=== PATIENT | male | born 2000 | race Caucasian/White ===

== ENCOUNTER 2022-03-07 18:04 | Emergency (ER) | payer SELFPAY ==
[~2022-03-07] VITALS: Ht 167.6 cm; Wt 60.6 kg
[2022-03-07] MEDS ORDERED: PREDNISONE10 MG PO (19:03)
[2022-03-07] MEDS ORDERED: BENADRYL ALLERG25 M2 PO (19:03)
[2022-03-07 19:11] VITALS: BP 122/78
== END 2022-03-07 19:10 | disposition home or self-care (01) ==
LOC: ED 18:04
DX: L50.9 Urticaria, unspecified (principal); Z28.310 Unvaccinated for COVID-19
CPT/HCPCS: J7512